=== PATIENT | female | born 1995 | race Caucasian/White ===

== ENCOUNTER 2017-04-13 17:45 | Emergency (ER) | payer BC, OTHER ==
[~2017-04-13] VITALS: Ht 162.6 cm; Wt 49.4 kg
[2017-04-13 17:50] VITALS: Ht 162.6 cm; Wt 49.4 kg
[2017-04-13] MEDS ORDERED: ESCI10TA17 PO (17:57)
[2017-04-13] MEDS ORDERED: XNX5 PO (17:57)
[2017-04-13] MEDS ORDERED: NAPR1TAB9 PO (17:58)
[2017-04-13] MEDS ORDERED: DIAZEPAM 5MG TAB PO STA (18:42)
[2017-04-13] MEDS ORDERED: KETOROLAC TROMETHAMINE 60 MG/2 ML VIAL IM STA (18:42)
--- NOTE | 2017-04-13 18:42 | EMERGENCY ROOM VISIT NOTE ---
ED Visit Note First contact with patient: 17:57 CHIEF COMPLAINT: Low back pain HISTORY OF PRESENT ILLNESS: This is a 21-year-old female who presents to the emergency department with complaint of right low back pain that started one week ago and progressively worsening. The pain was gradual in onset, is now constant and worse with movement and bending over, better with rest, rates as 4/ 10. She has not tried any medications for the pain. She denies any bowel or bladder difficulties or saddle paresthesias. There has been no leg numbness or weakness. No recent direct trauma to the lower back, but she does states she does a lot of heavy lifting and twisting at her job which she thinks is aggravated her back. She denies any fevers, chills, headaches, neck pain, chest pain, shortness of breath, abdominal pain, nausea/vomiting, diarrhea, constipation, bloody or black stool, urinary symptoms, abnormal vaginal bleeding or discharge, or rash. REVIEW OF SYSTEMS: A complete 10 point review of systems was reviewed with the patient with pertinent positives and negatives as per history of present illness. All else were negative. PMH: The patient is healthy; there is no significant medical or surgical history. No previous injuries to her back. SOCIAL HISTORY: Patient lives at home. She is a current every day smoker. She denies alcohol and recreational drug use. PHYSICAL EXAM: Vital Signs: Reviewed Nurse's notes. CONSTITUTIONAL: Pleasant and cooperative. No acute distress, but does appear uncomfortable throughout the exam. Otherwise well appearing and well nourished. HEENT: Normocephalic, atraumatic. Pupils equal, round and reactive to light, EOMI. TMs normal. Pharynx normal. NECK: Supple, full active range of motion without discomfort. RESPIRATORY: Clear to auscultation bilaterally with no wheezing, crackles, rhonchi or stridor. Equal expansion bilaterally. CARDIOVASCULAR: Regular rate and rhythm with no murmurs, rubs or gallops. Normal peripheral perfusion. No edema. GASTROINTESTINAL: Soft, nontender, nondistended. No palpable masses or HSM. Bowel sounds present in all quadrants. BACK: Tenderness in the right paraspinous muscles in the lumbar area with mild muscle spasm noted. No tenderness over the spinous processes of the lumbar vertebrae. LEGS: Normal strength including dorsi-flexion and plantar flexion of the feet. Negative bilateral straight leg raising, normal and symmetrical knee and ankle reflexes. MUSCULOSKELETAL: Full range of motion of all joints without discomfort. INTEGUMENTARY: No rash or other significant dermatologic conditions noted. NEUROLOGIC: Alert and oriented X 4 with normal affect. Cranial nerves II-XII grossly intact. No focal neurologic deficits noted. EMERGENCY DEPARTMENT COURSE: I examined the patient. Differential diagnosis includes muscle strain/sprain, muscle spasm, lumbar radiculopathy, bulging disc or disc herniation. Fracture/subluxation seems unlikely given no trauma to the back. No red flags for cauda equina syndrome. Patient was treated with IM Toradol and PO Valium, with significant relief in her pain. The patient was provided with a prescription for Valium for continued muscle relaxant at home. Patient was instructed to follow up with her PCP and to seek physical therapy of her back pain does not improve in the next several days. She was also given strict return precautions should her symptoms worsen in anyway, she verbalized understanding. The patient was discharged home in stable condition and ambulatory. DIAGNOSIS: Lumbar strain DISCHARGE INSTRUCTIONS AND TREATMENT: Rest off your feet for 1 to 2 days, heat to the low back. See your own doctor or an orthopedist in 4 - 5 days if you are not improving. XXXXX every 4 to 6 hours if needed for the pain. Current/Historical Medications Scheduled Diazepam (Valium), 5 MG PO TID Escitalopram (Lexapro), 10 MG PO DAILY Scheduled PRN Alprazolam (Alprazolam), 0.5 MG PO DAILY PRN for Anxiety Naproxen (Aleve), 440 MG PO DAILY PRN for Pain Allergies Coded Allergies: No Known Allergies (Unverified , 04/13/17) Vital Signs Date Time Temp Pulse Resp B/P (MAP) Pulse Ox O2 Delivery O2 Flow Rate FiO2 04/13/17 20:07 36.7 88 16 112/69 99 04/13/17 19:34 88 16 112/69 99 Room Air 04/13/17 17:50 36.7 125 16 137/81 100 Room Air Medications Administered Medications (Trade) Dose Ordered Sig/Mele Route Start Time Stop Time Status Last Admin Dose Admin Diazepam (Valium Tab) 5 mg NOW STAT PO 04/13/17 18:42 04/13/17 18:44 DC 04/13/17 18:59 5 MG Ketorolac Tromethamine (Toradol Inj) 30 mg STK-MED ONCE .ROUTE 04/13/17 18:55 04/13/17 18:56 DC 04/13/17 19:00 30 MG Departure Information Impression Primary Impression: Strain of lumbar region Dispostion Home / Self-Care Condition GOOD Prescriptions Diazepam (Valium) 5 Mg Tab 5 MG PO TID for 3 Days, #9 TAB Prov: [place]ital Sharonda, [employer] 04/13/17 Referrals No Doctor, Assigned (PCP) Patient Instructions ED Back Care Tips, ED Exercises Lumbar Muscles, ED Sprain Strain Lumbar, My [facility] Additional Instructions Take it easy for the next few days, no strenuous activity, heavy lifting, or bending/twisting motions, to allow your back to rest. Alternate heat and ice for comfort. After heat, you may do gentle stretching and massage to the low back. Ibuprofen or Aleve as needed for pain. Valium muscle relaxer as prescribed, as needed for muscle tightness and spasms. This may make you drowsy. Do not drive or drink alcohol while taking. Follow up with your PCP in the next few days for further management. You may benefit from physical therapy. Please return to the ER if any problems with bowel or bladder function, numbness in your groin, high fevers, severe abdominal pain or worsening back pain, or if loss of feeling/movement of legs. Work Instructions Return To Work: 2 days Problem Qualifiers Primary Impression: Strain of lumbar region Encounter type: initial encounter Qualified Codes: S39.012A - Strain of muscle, fascia and tendon of lower back, initial encounter
[2017-04-13] MEDS ORDERED: KETOROLAC TROMETHAMINE 30 MG/ML VIAL ONE (18:55)
[2017-04-13] MEDS ORDERED: DIAZ-165 PO (20:05)
[2017-04-13 20:07] VITALS: BP 112/69; PULSE 88; TEMP 36.7; O2SAT 99
== END 2017-04-13 20:13 | disposition home or self-care (01) ==
LOC: C.EDB 17:47 → C.EDD 20:13
DX: S39.012A Strain of muscle, fascia and tendon of lower back, initial encounter (principal); X58.XXXA Exposure to other specified factors, initial encounter; F17.200 Nicotine dependence, unspecified, uncomplicated